=== PATIENT | male | born 1965 | race Caucasian/White ===

== ENCOUNTER 2018-02-12 06:17 | Day surgery (SDC) | payer BC ==
[2018-02-12] MEDS ORDERED: ROPIVACAINE 0.5 % 30 ML VIAL (06:49)
[2018-02-12] MEDS ORDERED: morphine SULFATE/PF (10 MG/10 ML) INJ (06:49)
[2018-02-12] MEDS ORDERED: LIDOCAINE 1% (MPF) 30 ML INJ (06:49)
[2018-02-12] MEDS ORDERED: ONDANSETRON 4 MG INJ (07:35)
[2018-02-12] MEDS ORDERED: FENTAnyl 50 MCG/ML VIAL (07:35)
[2018-02-12] MEDS ORDERED: PROPOFOL 20 ML ×2 (07:35→08:39)
[2018-02-12] MEDS ORDERED: METOCLOPRAMIDE 10 MG INJ (07:35)
[2018-02-12] MEDS ORDERED: CEFAZOLIN 1 GM INJ (07:35)
[2018-02-12] MEDS ORDERED: morphine 2 MG INJ IV (08:00)
[2018-02-12] MEDS ORDERED: SUCCINYLCHOLINE CHLORIDE 100 MG/5 ML SYG IV (08:33)
[2018-02-12] MEDS: CA CHLORIDE 10% 10 ML SYRINGE (08:38)
[2018-02-12] MEDS: THROMBIN 5000 UNIT VIAL (08:39)
[2018-02-12] MEDS ORDERED: HYDROmorphONE 1 MG/5 ML IV SYRINGE IV ×3 (09:00)
[2018-02-12] MEDS ORDERED: LABETALOL HCL 20MG INJ IV (09:00)
[2018-02-12] MEDS ORDERED: ONDANSETRON 4 MG INJ IV (09:00)
[2018-02-12] MEDS ORDERED: DIPHENHYDRAMINE 50 MG INJ IV (09:00)
[2018-02-12] MEDS ORDERED: MEPERIDINE 25 MG INJ IV (09:00)
[2018-02-12] MEDS ORDERED: hydrALAzine 20 MG INJ IV (09:00)
[2018-02-12] MEDS: OXYCODONE/ACETAMINOPHEN (5/325) TAB PO ×2 (09:16→10:04)
== END 2018-02-12 12:40 | disposition home or self-care (01) ==
LOC: SDS 06:17
DX: M23.222 Derangement of posterior horn of medial meniscus due to old tear or injury, left knee (principal); M23.252 Derangement of posterior horn of lateral meniscus due to old tear or injury, left knee; M94.262 Chondromalacia, left knee; I10 Essential (primary) hypertension; Z87.891 Personal history of nicotine dependence
CPT/HCPCS: 29880; 82306